=== PATIENT | female | born 1950 | race Caucasian/White ===

== ENCOUNTER 2019-12-01 17:57 | Emergency (ER) | payer MEDICARE, OTHER ==
[2019-12-01 18:29] VITALS: BP 143/85
--- NOTE | 2019-12-01 18:33 | UC ---
Eye Complaint HPI - HPI Summary HPI Summary: Pt states starting yesterday with redness under her right eye and drainage. Pt states she woke this am and the right eye was closed shut from the drainage - History of Current Complaint Chief Complaint: Ahsan Stated Complaint: PINK EYE Time Seen by Provider: 12/01/19 18:23 Hx Obtained From: Patient Pain Intensity: 0 Location of Injury: Eye Lid (lower) Aggravating Factor(s): Nothing Alleviating Factor(s): Nothing - Allergies/Home Medications Allergies/Adverse Reactions: Allergies Allergy/AdvReac Type Severity Reaction Status Date / Time No Known Allergies Allergy Verified 12/01/19 18:29 Home Medications: Home Medications Erythromycin OPTH OINT* [Erythromycin 0.5% OPTH OINT*] 1 applic RIGHT EYE TID 10 Days #1 ophth.oint 12/01/19 [Rx] Pravastatin (NF) [Pravachol (NF)] 10 mg PO 1700 12/01/19 [History Confirmed ] PMH/Surg Hx/FS Hx/Imm Hx Previously Healthy: Yes Cardiovascular History: Cardiac Disease - Surgical History Surgical History: None - Family History Known Family History: Positive: Non-Contributory - Social History Alcohol Use: None Substance Use Type: None Smoking Status (MU): Never Smoked Tobacco Review of Systems All Other Systems Reviewed And Are Negative: Yes Constitutional: Negative: Fever, Chills, Fatigue Skin: Negative: Rash Eyes: Positive: Drainage, Eye Redness. Negative: Blurred Vision, Diplopia, Photophobia Physical Exam Triage Information Reviewed: Yes Appearance: Well-Appearing Vital Signs: Initial Vital Signs Temp 98 F 12/01/19 18:24 Pulse 68 12/01/19 18:24 Resp 14 12/01/19 18:24 BP 143/85 12/01/19 18:24 Pulse Ox 100 12/01/19 18:24 Eyes: Positive: Conjunctiva Inflamed, Discharge - R, Other: - small irregularly shaped cyst/papule in lower conj Eye Complaint Course/Dx - Course Course Of Treatment: R eye w/ acute crusting discharge and redness. Although likely viral will cover for bacterial source. Upon examination an irregular papule/cyst was found and strongly encouraged her to see her regular eye doctor which she has. - Differential Dx/Diagnosis Differential Diagnosis/HQI/PQRI: Conjunctivitis, Other Provider Diagnosis: Conjunctivitis Discharge ED - Sign-Out/Discharge Documenting (check all that apply): Patient Departure All imaging exams completed and their final reports reviewed: No Studies - Discharge Plan Condition: Good Disposition: HOME Prescriptions: Erythromycin OPTH OINT* [Erythromycin 0.5% OPTH OINT*] 1 applic RIGHT EYE TID 10 Days #1 ophth.oint Patient Education Materials: Conjunctivitis (ED) Referrals: No Primary Care Phys,NOPCP [Primary Care Provider] - Additional Instructions: Please follow up with your eye doctor at home to evaluate the growth. - Billing Disposition and Condition Condition: GOOD Disposition: Home - Attestation Statements Provider Attestation: I was available for consult. This patient was seen by the APOLINAR. The patient was not presented to , seen by or examined by dc -Claudia Monsivais MD
== END 2019-12-01 18:43 | disposition home or self-care (01) ==
LOC: UCCORT 17:57
DX: H10.9 Unspecified conjunctivitis (principal); I25.10 Atherosclerotic heart disease of native coronary artery without angina pectoris; Z79.899 Other long term (current) drug therapy
CPT/HCPCS: 99202; G0463